=== PATIENT | female | born 1960 | race African-American/Black ===

== ENCOUNTER 2022-05-10 14:57 | Emergency (ER) | payer OTHER, MEDICAID ==
[~2022-05-10] VITALS: Ht 167.6 cm; Wt 73.0 kg
[2022-05-10 14:58] VITALS: BP 178/92
[2022-05-10 15:41] LABS: BUN/Creatinine Ratio 19.8; Calcium 9.3 mg/dL (8.5-10.1); Potassium 3.7 mmol/L (3.5-5.1)
[2022-05-10 15:43] LABS: Bilirubin, Total 0.3 mg/dL (0.2-1.0); Hematocrit 40.9 % (36.0-46.0); Hemoglobin 13.5 g/dL (12.2-16.2); Mean Corpuscular Hemoglobin 29.4 pg (28.0-32.0); Mean Corpuscular Hgb Conc. 33.1 g/dL (32.0-36.0); Red Cell Distribution Width 13.9 % (11.8-14.3); Total Protein 7.2 g/dL (6.4-8.2); White Blood Cell 6.5 10^3/uL (4.4-10.8)
[2022-05-10 15:45] LABS: Basophils % (manual) 0 (0.0-2.0); Blast Cells 0; Eosinophils % (manual) 0 (0-7); Metamyelocytes % 0; Myelocytes % 0; Promyelocytes % 0
[2022-05-10 17:01] LABS: Band Neutrophils % (manual) 0; Lymphocytes % (manual) 51 (10.0-50.0); Monocytes % (manual) 10 (0-12); Reactive Lymphocytes 1
== END 2022-05-10 20:06 | disposition left against medical advice (07) ==
LOC: ER 15:02
DX: R07.89 Other chest pain (principal); R05.9 Cough, unspecified; Z53.21 Procedure and treatment not carried out due to patient leaving prior to being seen by health care provider
CPT/HCPCS: 36415; 80053; 83880; 84484; 85007; 85027; 93005

== ENCOUNTER 2022-06-18 03:45 | Emergency (ER) | payer OTHER, MEDICAID ==
[~2022-06-18] VITALS: Ht 167.6 cm; Wt 73.0 kg
[2022-06-18 04:09] VITALS: BP 173/83
[2022-06-18 04:47] LABS: Basophils # (auto) 0 10 ^3/uL (0-0.2); Basophils % (auto) 0.3 % (0.0-2.0); Eosinophils # (auto) 0 10 ^3/uL (0-0.8); Eosinophils % (auto) 0.2 % (0.0-7.0); Hematocrit 38.1 % (36.0-46.0); Hemoglobin 13.1 g/dL (12.2-16.2); Lymphocytes # (auto) 0.4 10 ^3/uL (0.4-5.4); Lymphocytes % (auto) 4.5 % (10.0-50.0); Mean Corpuscular Hemoglobin 30.3 pg (28.0-32.0); Mean Corpuscular Hgb Conc. 34.5 g/dL (32.0-36.0); Monocytes # (auto) 0.5 10 ^3/uL (0-1.3); Monocytes % (auto) 5.7 % (0.0-12.0); Neutrophils # (auto) 7.3 10 ^3/uL (1.6-8.6); Neutrophils % (auto) 89.3 % (37.0-80.0); Nucleated Red Blood Cells % 0.1 %; Red Blood Cells 4.33 10^6/uL (4.0-5.20); Red Cell Distribution Width 13.5 % (11.8-14.3); White Blood Cell 8.2 10^3/uL (4.4-10.8)
[2022-06-18 05:05] LABS: Calcium 9.1 mg/dL (8.5-10.1); INR 0.97 (0.9-1.15); Partial Thromboplastin Time 31.3 sec (24.6-33.4); Potassium 3.7 mmol/L (3.5-5.1)
[2022-06-18 05:08] LABS: BUN/Creatinine Ratio 11.3; Bilirubin, Total 0.4 mg/dL (0.2-1.0); Total Protein 7.2 g/dL (6.4-8.2)
[2022-06-18] MEDS ORDERED: ACETAMINOPHEN 500 MG TAB PO ONE (05:45)
== END 2022-06-19 05:51 | disposition left against medical advice (07) ==
LOC: ER 03:45
DX: R07.9 Chest pain, unspecified (principal); R51.9 Headache, unspecified; Z53.21 Procedure and treatment not carried out due to patient leaving prior to being seen by health care provider
CPT/HCPCS: 36415; 71045; 80053; 83880; 84484; 85025; 85610; 85730; 93005